=== PATIENT | female | born 1940 | race Caucasian/White ===

== ENCOUNTER 2023-08-18 16:19 | Emergency (ER) | payer MEDICARE, OTHER, SELFPAY ==
--- NOTE | ~2023-08-18 | XR_ITS ---
EXAMINATION: XR CHEST CLINICAL INFORMATION: Chest pain COMPARISON: None available. TECHNIQUE: 2 views of the chest were obtained. FINDINGS: The cardiac silhouette does not appear enlarged. Hilar and mediastinal contours are unremarkable. There is left lower lobe atelectasis/small infiltrate. The right lung is clear. There may be a small left pleural effusion. No right pleural effusion. No pneumothorax. Degenerative changes of the spine. XR/XR chest 2V IMPRESSION: Left lower lobe atelectasis/small infiltrate and small left pleural effusion.
[2023-08-18 16:29] VITALS: BP 153/82; BP 164/55; PULSE 55; PULSE 58; RESP 16; TEMP 36.6; O2SAT 96; BMI 26.1
--- NOTE | 2023-08-18 16:33 | ECG_ITS ---
Test Reason : CP Blood Pressure : / mmHG Vent. Rate : 057 BPM Atrial Rate : 057 BPM P-R Int : 156 ms QRS Dur : 098 ms QT Int : 452 ms P-R-T Axes : 073 049 022 degrees QTc Int : 439 ms Sinus bradycardia with frequent Premature ventricular complexes Otherwise normal ECG No previous ECGs available Referred By: Deisy Licea Electronically Signed By:Adarsh Wells
[2023-08-18 16:43] LABS: MANUAL DIFF FLAG NO
--- NOTE | 2023-08-18 16:43 | ED.CHESTPAIN ---
HPI - Chest Pain General Chief Complaint: Chest Pain Stated Complaint: STERNAL CHEST PRESSURE, NOW RESOLVED Time Seen by Provider: 08/18/23 16:23 Source: patient and EMS Mode of arrival: EMS Limitations: no limitations History of Present Illness HPI narrative: Patient is an 83-year-old female who presents emergency department via EMS coming from [facility] and [place]. She began experiencing ?central chest pain? pointing to the lower midsternal region earlier this afternoon. Per EMS report this was at approximately 1400. She admits to being very forgetful, but reportedly the pain has been intermittent. At 1 point she had endorse pain radiating to her neck. At the time of my evaluation she denies radiation of the pain. She currently is asymptomatic and has no additional complaints at this time. She does admit that there is a COVID outbreak at her facility currently, however she denies headache, cough, URI symptoms, shortness of breath, GI symptoms. Again she offers no complaints at this time. Related Data Allergies Allergy/AdvReac Type Severity Reaction Status Date / Time droperidol [From [facility]] Allergy Unknown Verified 08/18/23 16:35 fentanyl [From [employer]] Allergy Unknown Verified 08/18/23 16:35 gabapentin Allergy Unknown Verified 08/18/23 16:35 meperidine [From Demerol] Allergy Unknown Verified 08/18/23 16:35 morphine Allergy Unknown Verified 08/18/23 16:35 pine nut Allergy Unknown Verified 08/18/23 16:35 pollen extracts Allergy Unknown Verified 08/18/23 16:35 Review of Systems Review of Systems: Yes all other systems are reviewed and are negative [facility], [facility] Past Medical History Attestation statement: The following information was validated with the patient. Source: old records reviewed Social History Social History Smoked in Last 30 Days: No Use of substances other than those prescribed or required for medical reasons: No Advance Directives: No Advance Directives Information Provided: No Do you have a plan to hurt others: No Plan Physical Exam Vital Signs: Vital Signs: Last Vital Signs Temp 98.6 F 08/18/23 19:11 Pulse 56 08/18/23 19:11 Resp 18 08/18/23 19:11 BP 160/61 H 08/18/23 19:11 Pulse Ox 96 08/18/23 19:11 O2 Del Method Room Air 08/18/23 19:11 BMI result Body Mass Index 26.1 Appearance: Alert.?Oriented to person, place and time. No acute distress.?Normal affect. Eyes: Pupils equal, round and reactive to light.? ENT: Pharynx normal.?? Neck: Normal inspection.? Neck supple.?? CVS: Heart sounds normal. Normal heart rate and rhythm.? Pulses normal.?? Respiratory: No respiratory distress.? Lung sounds clear to auscultation bilaterally?? Abdomen: Soft and non-tender. Normoactive bowel sounds. Skin: Skin warm and dry.? Normal skin color.? Extremities: No lower extremity edema.? No calf ttp? Neuro: Moves all extremities spontaneously. Sensation intact bilaterally. Ambulates with normal steady gait. Course Reevaluation(s) Reevaluation #1: CXR with left lower lobe atelectasis/small infiltrate, based on history and physical examination I suspect this is most likely atelectasis in the setting of COVID-19 infection rather than acute bacterial infiltrate. She has in no respiratory distress. Speaking clear full sentences. Does not noted to have any cough, fever, chills, no leukocytosis. At this time feel that she is stable for discharge back to facility. High sensitive troponin within normal range x2, EKG nonischemic. Time: 21:20 Medical Decision Making Medical Decision Making MDM Narrative: Patient is an 83-year-old female with past medical history of hypertension, neuropathy, prior back surgery presenting to emergency department for evaluation of chest pain as per HPI that has since resolved. Overall she appears well, nontoxic, afebrile. She is speaking clear full sentences. Lung sounds are clear. She is mildly bradycardic in his without tachypnea hypoxia and afebrile. Upon palpation there is no reproducible chest pain. Her physical examination is benign at this time and she is without any active complaints. Will obtain CBC to evaluate for leukocytosis/ anemia, CMP and lipase to evaluate for abnormal electrolytes /abnormal renal function/ abnormal hepatic/biliary function, EKG and troponin to evaluate for ischemia/ACS. Chest x-ray to evaluate for consolidation/ infiltrate/ mass/ pulmonary congestion and Urinalysis. Differential Diagnosis Differential Diagnoses: The differential diagnosis associated with the presentation includes (COVID-19, viral syndrome, ACS, GERD, musculoskeletal pain, Wells negative, less likely DVT) Admission/Observation Consideration of admission/observation: Escalation of care including admission/observation considered (See narrative above and course narrative for further detail) Lab Data MDM Lab Attestation statement: I reviewed the patient's lab results. No leukocytosis, no anemia, no thrombocytopenia. No electrolyte derangement. No CINDI. LFTs within normal range. High sensitive troponin within normal range x2. COVID-19 positive 08/18/23 16:40 08/18/23 16:40 Labs: Lab Results 08/18/23 08/18/23 Range/Units 16:40 19:21 WBC 5.8 (4.8-10.8) X10*3/uL RBC 4.30 (4.20-5.50) X10*6/uL Hgb 12.1 (12.0-16.0) g/dl Hct 37.2 (37.0-47.0) % MCV 86.5 (80.0-98.0) fL MCH 28.1 (27.0-33.0) pg MCHC 32.5 (31.0-35.0) g/dl RDW 15.3 (11.0-16.0) % Plt Count 161 (160-400) X10*3/uL MPV 8.6 L (9.4-12.3) fL Immature Gran % (Auto) 0.3 (0.0-0.4) % Neut % (Auto) 57.0 (45-73) % Lymph % (Auto) 25.4 (20-40) % [place] % (Auto) 13.2 H (2-11) % Eos % (Auto) 3.8 (0-4) % Baso % (Auto) 0.3 (0-2) % Lymph # (Auto) 1.5 (1.2-4.9) X10*3/uL [place] # (Auto) 0.8 (0.1-1.2) X10*3/uL Eos # (Auto) 0.2 (0.0-0.4) X10*3/uL Baso # (Auto) 0.0 (0.0-0.2) X10*3/uL Abs Immat Gran (auto) 0.02 (0.00-0.03) X10*3/uL Absolute Neuts (auto) 3.3 (2.0-8.3) x10*3/uL Absolute Nucleated RBC 0.000 (0.0-0.012) X10*3/uL Nucleated RBC % (auto) 0.0 (0.0-0.2) /100WBC Sodium 144 (135-145) mmol/L Potassium 4.3 (3.3-5.1) mmol/L Chloride 106 (96-108) mmol/L Carbon Dioxide 29 (22-29) mmol/L Anion Gap 13 (12-20) BUN 23 H (9-16) mg/dL Creatinine 0.93 (0.5-1.4) mg/dL Estim Creat Clear Calc 52.8 Estimated GFR 58 Random Glucose 96 (60-115) mg/dL Calcium 9.9 (8.4-10.2) mg/dL Total Bilirubin 0.4 (0.0-1.0) mg/dL AST 26 (5-31) U/L ALT 21 (0-31) U/L Alkaline Phosphatase 48 (39-117) U/L Troponin I High Sens < 2.7 3.2 (<3.5-17.0) ng/L Total Protein 7.0 (6.5-8.0) g/dL Albumin 4.0 (3.5-5.0) g/dL Influenza Type A (PCR) NEGATIVE (Negative) Influenza Type B (PCR) NEGATIVE (Negative) RSV RNA Qual (PCR) NEGATIVE (Negative) SARS-CoV-2 RNA (RT-PCR) POSITIVE A (Negative) Independent Interpretation I performed an independent interpretation of an: EKG Interpretation: Rate: 57 Rhythm:? Sinus John with PVC Normal P waves.? Normal CLOTILDE.?? Normal QRS complex.?? ST T wave :??No ST elevation, no ST depression, no T-wave inversion qTC: 439 prior studies:? None available for review The study has been interpreted contemporaneously by me. Radiology Impression Discussion of test interpretation with radiology: I have reviewed the radiologist's reading. Radiologist Impression: XR/XR chest 2V IMPRESSION: Left lower lobe atelectasis/small infiltrate and small left pleural effusion. Independent Historian Clinical information obtained from an independent historian. History obtained from or confirmed by: EMS Discharge Plan Discharge Clinical Impression: COVID-19 Patient Disposition: Xfer Other Transfer Details: [facility] Instructions: COVID-19 (Coronavirus Disease 2019) (ED) Print Language: Bulgarian
[2023-08-18 16:46] LABS: Basophils Percent Auto 0.3 % (0-2); Eosinophils Absolute Auto 0.2 X10*3/uL (0.0-0.4); Eosinophils Percent Auto 3.8 % (0-4); Hematocrit 37.2 % (37.0-47.0); Hemoglobin 12.1 g/dl (12.0-16.0); Imm Gran Abs Auto 0.02 X10*3/uL (0.00-0.03); Imm Gran Pct Auto 0.3 % (0.0-0.4); Lymphocytes Absolute Auto 1.5 X10*3/uL (1.2-4.9); Lymphocytes Percent Auto 25.4 % (20-40); Mean Corpuscular HGB Conc 32.5 g/dl (31.0-35.0); Mean Corpuscular Hemoglobin 28.1 pg (27.0-33.0); Mean Corpuscular Volume 86.5 fL (80.0-98.0); Mean Platelet Volume 8.6 fL (9.4-12.3); Monocytes Absolute Auto 0.8 X10*3/uL (0.1-1.2); Monocytes Percent Auto 13.2 % (2-11); Neutrophils Absolute Auto 3.3 x10*3/uL (2.0-8.3); Platelet Count 161 X10*3/uL (160-400); Red Cell Distribution Width 15.3 % (11.0-16.0); White Blood Count 5.8 X10*3/uL (4.8-10.8)
[2023-08-18 16:53] VITALS: PULSE 57; RESP 16; O2SAT 97
--- NOTE | 2023-08-18 16:55 | PC.NURSE ---
Presents to ED via EMS from assisted living, was having chest pain substernal around 2pm today, has now resolved. Multiple people are positive for covid at assisted living, pt says someone told me I tested positive too . Alert and oriented, some confusion noted. Breathing even and unlabored, skin warm and dry. Sinus jimi on lunchroom monitor.
[2023-08-18 17:01] LABS: Alanine Aminotransferase 21 U/L (0-31); Alkaline Phosphatase 48 U/L (39-117); Anion Gap 13 (12-20); Aspartate Amino Transferase 26 U/L (5-31); Bilirubin Total 0.4 mg/dL (0.0-1.0); Blood Urea Nitrogen 23 mg/dL (9-16); Calcium 9.9 mg/dL (8.4-10.2); Carbon Dioxide 29 mmol/L (22-29); Chloride 106 mmol/L (96-108); Creatinine Clr Calc Pharmacy 52.8; Estimated Glomerular Filt Rate 58; Glucose Random 96 mg/dL (60-115); Potassium 4.3 mmol/L (3.3-5.1); Sodium 144 mmol/L (135-145)
[2023-08-18 17:08] LABS: Troponin-I High Sensitivity < 2.7 ng/L (<3.5-17.0)
[2023-08-18 17:31] LABS: Influenza A PCR NEGATIVE (Negative); Influenza B PCR NEGATIVE (Negative); Resp Syncy Virus RNA Qual PCR NEGATIVE (Negative); SARS COV2 PCR INHOUSE POSITIVE (Negative)
--- NOTE | 2023-08-18 18:17 | PC.NURSE ---
Son called and reports pt has had covid for a week, pt is often confused and forgetful.
[2023-08-18 19:11] VITALS: BP 160/61; PULSE 56; RESP 18; TEMP 37; O2SAT 96
[2023-08-18 19:51] LABS: Troponin-I High Sensitivity 3.2 ng/L (<3.5-17.0)
--- NOTE | 2023-08-18 22:40 | PC.NURSE ---
Patient is anxious to be discharge, BP 193/99, P 82, O2 Sat 97 % RA. Patient denies chest pain/headache/SOB/non-diaphoretic. Dr. aGrcia made aware of high BP, per MD OK for patient to be discharged with elevated BP.
[2023-08-18 22:43] VITALS: BP 193/99; PULSE 82; RESP 16; TEMP 36.8; O2SAT 97
== END 2023-08-18 22:45 | disposition skilled nursing facility (03) ==
PROVIDERS: Nurse Practitioner Family; Emergency Provider Internal Medicine; PCP Registered Nurse
DX: U07.1 COVID-19 (principal)
CPT/HCPCS: 0241U; 36415; 71046; 80053; 84484; 85025; 93005; 99283; 99285

== ENCOUNTER → 2023-08-18 16:33 | Outpatient (BNV) | payer MEDICARE, OTHER, SELFPAY | PROVIDERS: Emergency Provider Internal Medicine; PCP Registered Nurse; Visit Provider Internal Medicine Cardiovascular Disease | DX: R07.9 Chest pain, unspecified (principal) | CPT/HCPCS: 93010 ==